=== PATIENT | female | born 1950 | race Caucasian/White ===

== ENCOUNTER → 2020-10-19 | Outpatient (CLI) | payer MEDICARE, OTHER ==
[2020-10-19 15:29] LABS: BASOPHILS ABSOLUTE AUTO 0.03 K/mm3 (0.00-0.23); BASOPHILS PERCENT AUTO 1 % (0-2); EOSINOPHILS ABSOLUTE AUTO 0.09 K/mm3 (0.00-0.68); EOSINOPHILS PERCENT AUTO 2 % (0-6); Hematocrit 31.6 % (33.0-51.0); Hemoglobin 9.4 g/dL (11.5-16.0); IMMATURE GRAN ABSOLUTE AUTO 0.01 K/mm3 (0.00-0.10); IMMATURE GRAN PERCENT AUTO 0 % (0-1); LYMPHOCYTES ABSOLUTE AUTO 0.87 K/mm3 (0.84-5.20); LYMPHOCYTES PERCENT AUTO 20 % (21-46); MONOCYTES ABSOLUTE AUTO 0.41 K/mm3 (0.16-1.47); MONOCYTES PERCENT AUTO 9 % (4-13); Mean Corpuscular HGB Conc 29.7 g/dL (31.5-36.5); Mean Corpuscular Volume 81 fL (80-100); Mean Platelet Volume 10.6 fL (9.1-12.4); NEUTROPHILS ABSOLUTE AUTO 2.94 K/mm3 (1.96-9.15); NEUTROPHILS PERCENT AUTO 68 % (41-73); Platelet Count 405 K/mm3 (150-400); RDW Coefficient Variation 13.6 % (11.7-14.2); RDW Standard Deviation 39.7 fL (35.1-46.3); Red Blood Cell Count 3.92 M/mm3 (3.80-5.20); White Blood Cell Count 4.35 K/mm3 (4.00-11.30)
== END ==
LOC: LAB SHORT 10:40 → LAB 10:40
PROVIDERS: Physician Assistant
DX: D64.9 Anemia, unspecified (principal)
CPT/HCPCS: 85025

== ENCOUNTER → 2021-04-06 | Outpatient (CLI) | payer MEDICARE, OTHER ==
[2021-04-10 14:11] LABS: HPV 16 Negative (Negative); HPV 18 Negative (Negative); HPV OTHER HR TYPES Negative (Negative)
== END | disposition home or self-care (01) ==
LOC: LAB 12:40 → LAB SHORT 12:40
PROVIDERS: Nurse Practitioner Family
DX: Z01.419 Encounter for gynecological examination (general) (routine) without abnormal findings (principal)
CPT/HCPCS: 87624; G0123

== ENCOUNTER 2021-04-18 07:44 | Day surgery (SDC) | payer MEDICARE, OTHER ==
[~2021-04-18] VITALS: Ht 167.6 cm; Wt 80.4 kg
[2021-04-18] MEDS ORDERED: BUPR150ER (08:21)
[2021-04-18] MEDS ORDERED: METO50ER (08:21)
[2021-04-18] MEDS ORDERED: ZOLP5 (08:22)
[2021-04-18] MEDS ORDERED: OMEPRAZOLE20 MG (08:22)
--- NOTE | 2021-04-18 13:58 | NUR ---
04/18/21 1358 Suzanne Montoya LATE ENTRY: PT STARTED DRY HEAVING DURING PROCEDURE. VOMIT X1 WITH ABOUT 20 MLS COMING OUT ONTO BED. PT APPEARED TO BE HAVING LARYNGEAL SPASM/ OBSTRUCTING W/ DESATURATION TO LOW 70S. O2 UP FROM 3-5. PT SYED DOWN TO LOW 30S BRIEFLY X3. ORAL AIRWAY PLACED, 2ND RN CALLED IN FOR AIRWAY SUPPORT, PT PLACE ON NONREBREATHER, 02 TO 10. ANESTHESIA CALLED INTO ROOM. DR SEWELL IN ROOM. PROPOFOL STOPPED & VERSED SEDATION STARTED PER DR SEWELL MEDICATION ORDERING. SEE MEDICATION FLOW SHEET. PT STABLE. LUNG SOUNDS CLEAR. PROCEDURE COMPLETE.
== END 2021-04-18 11:53 | disposition home or self-care (01) ==
LOC: ORSCSDS 07:44
PROVIDERS: Student in an Organized Health Care Education/Training Program
PROC: 0DBK8ZX Excision of Ascending Colon, Via Natural or Artificial Opening Endoscopic, Diagnostic (ICD-10-PCS; principal; 2021-04-18 09:00)
PROC: 0DB48ZX Excision of Esophagogastric Junction, Via Natural or Artificial Opening Endoscopic, Diagnostic (ICD-10-PCS; principal; 2021-04-18 09:00)
PROC: 0DB78ZX Excision of Stomach, Pylorus, Via Natural or Artificial Opening Endoscopic, Diagnostic (ICD-10-PCS; principal; 2021-04-18 09:00)
PROC: 0DBC8ZX Excision of Ileocecal Valve, Via Natural or Artificial Opening Endoscopic, Diagnostic (ICD-10-PCS; principal; 2021-04-18 09:00)
PROC: 0DB98ZX Excision of Duodenum, Via Natural or Artificial Opening Endoscopic, Diagnostic (ICD-10-PCS; principal; 2021-04-18 09:00)
DX: K21.9 Gastro-esophageal reflux disease without esophagitis (principal); K62.5 Hemorrhage of anus and rectum; R13.10 Dysphagia, unspecified; D50.9 Iron deficiency anemia, unspecified; K31.7 Polyp of stomach and duodenum; D12.2 Benign neoplasm of ascending colon; K52.9 Noninfective gastroenteritis and colitis, unspecified; K44.9 Diaphragmatic hernia without obstruction or gangrene; K64.4 Residual hemorrhoidal skin tags; I10 Essential (primary) hypertension; J45.909 Unspecified asthma, uncomplicated; F32.A Depression, unspecified; Z79.899 Other long term (current) drug therapy
CPT/HCPCS: 88305; 88342; J2250; J2405; J2704; J7040; J7120

== ENCOUNTER → 2022-05-23 | Outpatient (CLI) | payer MEDICARE, OTHER ==
[~2022-05-23] MED LIST: BUPR150ER; LASIX20 M2 PO; METO50ER; OMEPRAZOLE20 MG; POTCHL20ER PO; ZOLP5
[2022-05-23 14:25] LABS: BASOPHILS ABSOLUTE AUTO 0.03 K/mm3 (0.00-0.23); BASOPHILS PERCENT AUTO 1 % (0-2); EOSINOPHILS ABSOLUTE AUTO 0.12 K/mm3 (0.00-0.68); EOSINOPHILS PERCENT AUTO 2 % (0-6); Hematocrit 40.9 % (33.0-51.0); Hemoglobin 13.2 g/dL (11.5-16.0); IMMATURE GRAN ABSOLUTE AUTO 0.01 K/mm3 (0.00-0.10); IMMATURE GRAN PERCENT AUTO 0 % (0-1); LYMPHOCYTES ABSOLUTE AUTO 1.23 K/mm3 (0.84-5.20); LYMPHOCYTES PERCENT AUTO 21 % (21-46); MONOCYTES ABSOLUTE AUTO 0.42 K/mm3 (0.16-1.47); MONOCYTES PERCENT AUTO 7 % (4-13); Mean Corpuscular HGB 28.6 pg (26.0-34.0); Mean Corpuscular HGB Conc 32.3 g/dL (31.5-36.5); Mean Corpuscular Volume 89 fL (80-100); Mean Platelet Volume 10.3 fL (9.1-12.4); NEUTROPHILS ABSOLUTE AUTO 4.19 K/mm3 (1.96-9.15); NEUTROPHILS PERCENT AUTO 70 % (41-73); Platelet Count 367 K/mm3 (150-400); RDW Coefficient Variation 12.4 % (11.7-14.2); Red Blood Cell Count 4.62 M/mm3 (3.80-5.20)
== END | disposition home or self-care (01) ==
LOC: LAB SHORT 12:55 → LAB 12:55
PROVIDERS: Family Medicine
DX: I48.91 Unspecified atrial fibrillation (principal); R31.9 Hematuria, unspecified; R60.0 Localized edema
CPT/HCPCS: 83880; 84443; 85025

== ENCOUNTER 2022-08-09 10:54 | Emergency (ER) | payer MEDICARE, OTHER ==
[~2022-08-09] VITALS: Ht 167.6 cm; Wt 79.8 kg
[2022-08-09] MEDS ORDERED: Amiodarone HCl200 MG PO (11:25)
[2022-08-09] MEDS ORDERED: ELIQUIS5 M3 PO (11:25)
[2022-08-09] MEDS ORDERED: METO25ER PO (11:25)
[2022-08-09] MEDS ORDERED: ROSUVASTATIN CA20 MG PO (11:26)
[2022-08-09 12:00] LABS: BASOPHILS ABSOLUTE AUTO 0.02 K/mm3 (0.00-0.23); BASOPHILS PERCENT AUTO 0 % (0-2); EOSINOPHILS PERCENT AUTO 1 % (0-6); Hematocrit 38.6 % (33.0-51.0); Hemoglobin 12.5 g/dL (11.5-16.0); IMMATURE GRAN ABSOLUTE AUTO 0.02 K/mm3 (0.00-0.10); IMMATURE GRAN PERCENT AUTO 0 % (0-1); LYMPHOCYTES ABSOLUTE AUTO 1.02 K/mm3 (0.84-5.20); LYMPHOCYTES PERCENT AUTO 14 % (21-46); MONOCYTES ABSOLUTE AUTO 0.59 K/mm3 (0.16-1.47); MONOCYTES PERCENT AUTO 8 % (4-13); Mean Corpuscular HGB 28.8 pg (26.0-34.0); Mean Corpuscular HGB Conc 32.4 g/dL (31.5-36.5); Mean Corpuscular Volume 89 fL (80-100); Mean Platelet Volume 10.2 fL (9.1-12.4); NEUTROPHILS ABSOLUTE AUTO 5.31 K/mm3 (1.96-9.15); NEUTROPHILS PERCENT AUTO 75 % (41-73); Platelet Count 275 K/mm3 (150-400); RDW Coefficient Variation 13.2 % (11.7-14.2); RDW Standard Deviation 43.2 fL (35.1-46.3); Red Blood Cell Count 4.34 M/mm3 (3.80-5.20); White Blood Cell Count 7.06 K/mm3 (4.00-11.30)
[2022-08-09 12:11] LABS: Albumin/Globulin Ratio 1.2 (0.8-1.8); Bilirubin, Total 0.5 mg/dL (0.1-1.0); Calcium, Blood 9.3 mg/dL (8.5-10.1); Creatinine, Blood 0.77 mg/dL (0.40-1.00); Globulin, Blood 3.4 g/dL (2.2-4.0); Potassium, Blood 4.5 mmol/L (3.5-5.5); Total Protein, Blood 7.4 g/dL (6.4-8.2)
[2022-08-09 14:45] VITALS: BP 146/72
== END 2022-08-09 14:58 | disposition home or self-care (01) ==
LOC: ER 10:54
PROVIDERS: Physician Assistant
DX: R00.1 Bradycardia, unspecified (principal); R42 Dizziness and giddiness; R06.02 Shortness of breath; T46.2X5A Adverse effect of other antidysrhythmic drugs, initial encounter; Z88.2 Allergy status to sulfonamides; Z79.899 Other long term (current) drug therapy; I48.91 Unspecified atrial fibrillation
CPT/HCPCS: 36415; 80053; 84484; 85025; 93005; 93010; 99285-25

== ENCOUNTER 2022-09-11 14:25 | Emergency (ER) | payer MEDICARE, OTHER ==
[~2022-09-11] VITALS: Ht 167.6 cm; Wt 79.8 kg
[~2022-09-11 14:25] MED LIST changes: +Amiodarone HCl200 MG PO; +ELIQUIS5 M3 PO; +METO25ER PO; +ROSUVASTATIN CA20 MG PO
[2022-09-11 15:22] LABS: BASOPHILS ABSOLUTE AUTO 0.02 K/mm3 (0.00-0.23); BASOPHILS PERCENT AUTO 0 % (0-2); EOSINOPHILS ABSOLUTE AUTO 0.08 K/mm3 (0.00-0.68); EOSINOPHILS PERCENT AUTO 1 % (0-6); Hematocrit 41.1 % (33.0-51.0); Hemoglobin 13.3 g/dL (11.5-16.0); IMMATURE GRAN ABSOLUTE AUTO 0.01 K/mm3 (0.00-0.10); IMMATURE GRAN PERCENT AUTO 0 % (0-1); LYMPHOCYTES ABSOLUTE AUTO 0.82 K/mm3 (0.84-5.20); LYMPHOCYTES PERCENT AUTO 11 % (21-46); MONOCYTES ABSOLUTE AUTO 0.64 K/mm3 (0.16-1.47); MONOCYTES PERCENT AUTO 8 % (4-13); Mean Corpuscular HGB Conc 32.4 g/dL (31.5-36.5); Mean Corpuscular Volume 90 fL (80-100); Mean Platelet Volume 10.3 fL (9.1-12.4); NEUTROPHILS PERCENT AUTO 80 % (41-73); Platelet Count 307 K/mm3 (150-400); RDW Coefficient Variation 12.7 % (11.7-14.2); RDW Standard Deviation 41.5 fL (35.1-46.3); Red Blood Cell Count 4.59 M/mm3 (3.80-5.20); White Blood Cell Count 7.67 K/mm3 (4.00-11.30)
[2022-09-11 15:43] LABS: Albumin, Blood 4.2 g/dL (3.4-5.0); Albumin/Globulin Ratio 1.2 (0.8-1.8); Bilirubin, Total 0.2 mg/dL (0.1-1.0); Bun/Creatinine Ratio 17.8 (12.0-20.0); Calcium, Blood 9.4 mg/dL (8.5-10.1); Creatinine, Blood 1.35 mg/dL (0.40-1.00); Globulin, Blood 3.4 g/dL (2.2-4.0); Potassium, Blood 4.5 mmol/L (3.5-5.5); Total Protein, Blood 7.6 g/dL (6.4-8.2)
[2022-09-11] MEDS ORDERED: ROSU10TA PO (16:22)
[2022-09-11 18:27] VITALS: BP 133/75
== END 2022-09-11 18:30 | disposition home or self-care (01) ==
LOC: ER 14:25
PROVIDERS: Physician Assistant
DX: R00.1 Bradycardia, unspecified (principal); R07.89 Other chest pain; Z79.01 Long term (current) use of anticoagulants; Z79.899 Other long term (current) drug therapy; Z88.2 Allergy status to sulfonamides
CPT/HCPCS: 71046; 80053; 83880; 84443; 84484; 85025; 93005; 93010

== ENCOUNTER 2023-10-04 21:49 | Emergency (ER) | payer MEDICARE ==
[~2023-10-04] VITALS: Ht 167.6 cm; Wt 76.2 kg
[~2023-10-04 21:49] MED LIST changes: +ROSU10TA PO
[2023-10-04 21:57] VITALS: BP 159/87
[2023-10-04] MEDS ORDERED: Tetanus and Diphtheria Toxoid 0.5 ML INJ IM ONE (22:30)
== END 2023-10-05 00:05 | disposition home or self-care (01) ==
LOC: ER 21:49
DX: S01.81XA Laceration without foreign body of other part of head, initial encounter (principal); W22.8XXA Striking against or struck by other objects, initial encounter; Z88.2 Allergy status to sulfonamides; Z79.899 Other long term (current) drug therapy; I48.91 Unspecified atrial fibrillation
CPT/HCPCS: 12011; 70450; 72125; 90471; 90714; 99283-25

== ENCOUNTER → 2024-11-19 | Outpatient (CLI) | payer MEDICARE, OTHER | LOC: LAB 17:18 → LAB SHORT 17:18 | DX: N39.0 Urinary tract infection, site not specified (principal) | CPT/HCPCS: 87077; 87086; 87186 ==